=== PATIENT | male | born 2005 | race Caucasian/White ===

== ENCOUNTER 2025-05-07 21:04 | Emergency (ER) | payer MEDICAID, OTHER ==
[~2025-05-07] VITALS: Ht 180.3 cm; Wt 86.2 kg
[2025-05-07] MEDS ORDERED: KETO10TA2 PO (22:55)
[2025-05-07] MEDS ORDERED: KETOROLAC TROMETHAMINE INJ 30 MG/ML VIAL ONE (23:03)
[2025-05-07] MEDS ORDERED: TDAP [DIPH/PERTUSSIS/TET] 0.5 ML VIAL IM ONE (23:03)
[2025-05-07] MEDS: TDAP [DIPH/PERTUSSIS/TET] 0.5 ML VIAL IM ONE (23:07)
[2025-05-07] MEDS: KETOROLAC TROMETHAMINE INJ 30 MG/ML VIAL IM ONE (23:07)
[2025-05-07 23:26] VITALS: BP 135/70; TEMP 98; O2SAT 98
== END 2025-05-07 23:29 | disposition home or self-care (01) ==
LOC: ER 21:23
DX: S90.414A Abrasion, right lesser toe(s), initial encounter (principal); W22.01XA Walked into wall, initial encounter; Y93.89 Activity, other specified; Y92.89 Other specified places as the place of occurrence of the external cause; Y99.8 Other external cause status
CPT/HCPCS: 73630-TC; 90715; J1885